=== PATIENT | male | born 1945 | race Caucasian/White ===

== ENCOUNTER → 2016-07-11 | Outpatient (CLI) | payer MEDICARE ==
--- NOTE | 2016-07-11 09:45 | US ---
EXAMINATION TYPE: US prostate transrectal DATE OF EXAM: 07/11/2016 9:05 AM COMPARISON: 02/13/2014 prostate ultrasound. CLINICAL HISTORY: N40.0 hypertrophy of prostate. This examination was performed using the transrectal probe. EXAM MEASUREMENTS: Gland Size: 4.6 x 3.3 x 5.0 cm Volume: 39.4 ml Predicted PSA: 4.7 Actual PSA (if available):1.2 no definitive lesions identified, extensive calcification of left CZ and along urethra Seminal vesicles on initial images are felt within the partially imaged. Prostate gland is slightly m ore prominent on current study and is overall enlarged. No worrisome peripheral zone nodules are seen . Central zone calcifications are redemonstrated. IMPRESSION: Prostate gland remains enlarged in size consistent with BPH, no suspicious focal nodule identified.
== END | disposition home or self-care (01) ==
LOC: RADUSMAIN 08:43
PROVIDERS: ATTEND Family Medicine
DX: N40.0 Benign prostatic hyperplasia without lower urinary tract symptoms (principal)
CPT/HCPCS: 76872

== ENCOUNTER → 2017-11-24 | Outpatient (CLI) | payer MEDICARE ==
[2017-11-24 09:10] LABS: HCT 38.9 % (39.0-53.0); HGB 12.8 gm/dL (13.0-17.5); MCH 30.1 pg (25.0-35.0); MCV 91.4 fL (80.0-100.0); Mean Platelet Volume 7.5; Platelet Count 193 k/uL (150-450); RBC 4.26 m/uL (4.30-5.90); RDW 13.6 % (11.5-15.5); WBC 7.4 k/uL (3.8-10.6)
[2017-11-24 09:18] LABS: Anion Gap 5 mmol/L; Blood Urea Nitrogen 17 mg/dL (9-20); Carbon Dioxide 28 mmol/L (22-30); Chloride 106 mmol/L (98-107); Potassium 4.3 mmol/L (3.5-5.1); Sodium 139 mmol/L (137-145)
== END | disposition home or self-care (01) ==
LOC: LABPAT 08:13
PROVIDERS: ATTEND Internal Medicine Interventional Cardiology
DX: Z01.812 Encounter for preprocedural laboratory examination (principal); I25.10 Atherosclerotic heart disease of native coronary artery without angina pectoris; I48.1 Persistent atrial fibrillation
CPT/HCPCS: 36415; 80051; 82565; 84520; 85027

== ENCOUNTER 2017-12-25 06:32 | Day surgery (SDC) | payer MEDICARE ==
[2017-12-19 12:08] VITALS: BMI 36.1
[~2017-12-25 06:32] MED LIST: ALPRAZolam 0.25 MG TAB PO PRN; ALPRAZolam 0.5 MG TAB PO PRN; ASPIRIN 325 MG TAB PO STA; ATORVASTATIN 80 MG TAB PO STA; NITROGLYCERIN SL TABS 0.4 MG TAB SUBLINGUAL PRN; SODIUM CHLORIDE 0.9% 1,000 ML in EMPTY BAG 1 BAG IV ONE
[2017-12-25 07:09] VITALS: TEMP 98
[2017-12-25 07:21] LABS: Glucose,Whole Blood 123 mg/dL (75-99)
[2017-12-25] MEDS ORDERED: VERAPAMIL 2.5 MG/ML 2 ML AMP ONE (07:36)
[2017-12-25] MEDS ORDERED: MIDAZOLAM 2 MG/2 ML VIAL ONE (07:36)
[2017-12-25] MEDS ORDERED: LIDOCAINE 1% INJ 10MG/ML (20 ML MDV) ONE (07:36)
[2017-12-25 07:44] LABS: INR 1.1 (<1.2); Prothrombin Time 10.5 sec (9.0-12.0)
[2017-12-25] MEDS ORDERED: HEPARIN SODIUM 1,000 UN/ML (10ML VL) ONE (07:50)
[2017-12-25] MEDS ORDERED: MIDAZOLAM 2 MG/2 ML VIAL IV ONE (07:50)
[2017-12-25] MEDS: LIDOCAINE 1% INJ 10MG/ML (20 ML MDV) SQ ONE ×2 (07:52→08:00)
[2017-12-25] MEDS ORDERED: IOPAMIDOL-370 125ML BTL INJ ONE (08:12)
[2017-12-25] MEDS ORDERED: RX INFO: IV CONTRAST WAS GIVEN 1 EACH MISC MISCELLANE PRN (08:18)
[2017-12-25] MEDS ORDERED: SODIUM CHLORIDE 0.9% 1,000 ML IV SCH (08:30)
--- NOTE | 2017-12-25 08:39 | LTR ---
DATE OF SERVICE: 12/25/2017 RE: Indra Go Dear Dr. Correa; Mr. Indra Go was seen in my office for further evaluation of epigastric discomfort. He underwent a stress test and that revealed an anterior ischemia. Subsequently, he underwent today a heart catheterization which revealed critical disease involving the mid LAD with a calcified lesion. The patient will be scheduled to undergo an atherectomy, and stenting of the LAD in the next few weeks. Thank you for allowing us to participate in his care and please do not hesitate to call if you have any question or concern. Sincerely, MD ENRIKE Roberts / BERTHA: [id number] /
--- NOTE | 2017-12-25 08:57 | CC ---
CARDIAC CATHETERIZATION REPORT DATE OF SERVICE: 12/25/2017 PERFORMING PHYSICIAN: Oscar Garcia MD, Family Assistant. PROCEDURE PERFORMED: 1. Selective right and left coronary angiogram. 2. Left heart catheterization. INDICATION: This is a pleasant 72-year-old gentleman with a past medical history significant for diabetes, hypertension, and dyslipidemia, and he is also a former smoker who was experiencing epigastric discomfort. He underwent a myocardial perfusion imaging stress test and that revealed an anterior ischemia. He also did have a CT scan was done by his primary care physician and the CT scan revealed heavily calcified right and left coronary system. Because of that, the patient was scheduled today to undergo a heart catheterization. APPROACH: Right common femoral artery. COMPLICATION: None. LEVEL OF SEDATION: Moderate with sedation length of 23 minutes. PROCEDURE DESCRIPTION: After obtaining an informed consent, the patient was brought to the cardiac labeler. Initially, I tried to access the right radial artery but I was unable and because of that, I accessed the right common femoral artery. I did place a 6-Spanish sheath in the right common femoral artery. After that, I did selective right and left coronary angiogram using JR4 and JL4 catheters. Left heart catheterization was performed using 6-Spanish pigtail catheter. The procedure was completed without any complication. SELECTIVE CORONARY ANGIOGRAM: 1. The right coronary artery is a large caliber vessel and it is a dominant vessel. The RCA is calcified. It bifurcates distally into PDA and PLV branches, both have mild disease only. 2. The left main is calcified with mild disease only. It bifurcates into left circumflex, ramus intermedius, and left anterior descending artery. 3. The left circumflex is a moderate caliber vessel and is a nondominant vessel. The left circumflex itself is normal and gives rise into the first and second OM branches, both appeared to be angiographically normal. 4. The ramus intermedius is a large caliber vessel and seems to be angiographically normal. Distally, it bifurcates into 2 subbranches, both are angiographically normal as well. 5. The LAD, the proximal LAD by the bifurcation of the diagonal branch appeared to have mild disease only. The mid LAD just between the first and second diagonal branches has a calcified eccentric lesion appeared to be in the range of 80% to 90%. The LAD distally appeared to be angiographically normal. The first diagonal branch has mild disease in its ostium and the second diagonal branch appeared to be a moderate caliber vessel and angiographically normal. HEMODYNAMICS: The left ventricular end-diastolic pressure was 8 mmHg and no gradient was identified across the aortic valve. CONCLUSION: 1. Critical disease involving the mid left anterior descending between the bifurcation of first and second diagonal branches. The lesion is calcified and eccentric and critical. POSTPROCEDURE MANAGEMENT: 1. The patient will be scheduled to undergo an atherectomy, balloon angioplasty, and stenting of the LAD in the next couple of weeks. 2. Meanwhile, I will continue the patient on the current medical regimen. He is on aspirin and statin. I will add oral nitrate to the current medical regimen. I will follow up with the patient. MMODL / IJN: [id number] /
[2017-12-25 10:10] VITALS: RESP 18
[2017-12-25 11:40] VITALS: BP 133/80; PULSE 77
== END 2017-12-25 15:20 | disposition home or self-care (01) ==
LOC: CATHCVL 06:32
PROVIDERS: ATTEND Internal Medicine Interventional Cardiology
DX: I25.110 Atherosclerotic heart disease of native coronary artery with unstable angina pectoris (principal); I25.84 Coronary atherosclerosis due to calcified coronary lesion; I10 Essential (primary) hypertension; Z87.891 Personal history of nicotine dependence; F17.290 Nicotine dependence, other tobacco product, uncomplicated; E78.5 Hyperlipidemia, unspecified; I48.1 Persistent atrial fibrillation; E11.9 Type 2 diabetes mellitus without complications; Z79.84 Long term (current) use of oral hypoglycemic drugs; Z79.01 Long term (current) use of anticoagulants; Z79.899 Other long term (current) drug therapy; Z88.8 Allergy status to other drugs, medicaments and biological substances
CPT/HCPCS: 93458; 85610; C1894 ×2; C1769 ×2; J2250; J2001; Q9967

== ENCOUNTER 2018-01-16 06:24 | Day surgery (SDC) | payer MEDICARE ==
[2018-01-09 13:36] VITALS: BMI 36.1
[2018-01-16 06:57] LABS: Basophils # (A) 0.1 k/uL (0-0.2); Basophils % (A) 1 %; Eosinophils # (A) 0.2 k/uL (0-0.7); Eosinophils % (A) 2 %; HCT 39.5 % (39.0-53.0); HGB 13.1 gm/dL (13.0-17.5); Lymphocytes # (A) 1.4 k/uL (1.0-4.8); Lymphocytes % (A) 19 %; MCH 30.8 pg (25.0-35.0); MCHC 33.2 g/dL (31.0-37.0); Mean Platelet Volume 7.3; Monocytes # (A) 0.5 k/uL (0-1.0); Monocytes % (A) 7 %; Neutrophils % (A) 69 %; Platelet Count 207 k/uL (150-450); RBC 4.24 m/uL (4.30-5.90); RDW 13.8 % (11.5-15.5); WBC 7.3 k/uL (3.8-10.6)
[2018-01-16 07:03] LABS: INR 1.1 (<1.2); Prothrombin Time 10.5 sec (9.0-12.0)
[2018-01-16 07:09] LABS: Anion Gap 9 mmol/L; Blood Urea Nitrogen 20 mg/dL (9-20); Calcium 9.1 mg/dL (8.4-10.2); Carbon Dioxide 25 mmol/L (22-30); Chloride 110 mmol/L (98-107); Glucose 110 mg/dL (74-99); Potassium 4.4 mmol/L (3.5-5.1); Sodium 144 mmol/L (137-145)
[2018-01-16 07:11] LABS: Glucose,Whole Blood 111 mg/dL (75-99)
[2018-01-16] MEDS ORDERED: LIDOCAINE 1% INJ 10MG/ML (20 ML MDV) ONE (07:24)
[2018-01-16] MEDS ORDERED: MIDAZOLAM 2 MG/2 ML VIAL ONE (07:24)
[2018-01-16] MEDS ORDERED: LIDOCAINE 1% INJ 10MG/ML (20 ML MDV) SQ ONE (07:52)
[2018-01-16] MEDS ORDERED: MIDAZOLAM 2 MG/2 ML VIAL IVP ONE (07:52)
[2018-01-16] MEDS ORDERED: HEPARIN SODIUM 1,000 UN/ML (10ML VL) ONE (07:52)
[2018-01-16] MEDS ORDERED: HEPARIN SODIUM 1,000 UN/ML (10ML VL) IV ONE (07:54)
[2018-01-16] MEDS ORDERED: fentaNYL (PF) 50 MCG/ML 2 ML AMP ONE (08:13)
[2018-01-16] MEDS: NITROGLYCERIN 1000MCG/10ML SYRINGE INTRACORON ONE ×2 (08:15→08:24)
[2018-01-16] MEDS ORDERED: fentaNYL (PF) 50 MCG/ML 2 ML AMP IVP ONE (08:15)
[2018-01-16] MEDS ORDERED: TICAGRELOR 90 MG TAB ONE (08:24)
[2018-01-16] MEDS ORDERED: TICAGRELOR 90 MG TAB PO ONE (08:24)
[2018-01-16] MEDS ORDERED: NITROGLYCERIN SL TABS 0.4 MG TAB SUBLINGUAL PRN (08:35)
[2018-01-16] MEDS ORDERED: ATROPINE SULFATE 0.1 MG/ML 10ML SYRINGE IV PRN (08:35)
[2018-01-16] MEDS ORDERED: RX INFO: IV CONTRAST WAS GIVEN 1 EACH MISC MISCELLANE PRN (08:35)
[2018-01-16] MEDS ORDERED: ZOLPIDEM 5 MG TAB PO PRN (08:35)
[2018-01-16] MEDS ORDERED: MAG HYDROX/AL HYDROX/SIMETH 30 ML CUP PO PRN (08:35)
[2018-01-16] MEDS ORDERED: IOPAMIDOL-370 125ML BTL INJ ONE (08:37)
[2018-01-16] MEDS ORDERED: SODIUM CHLORIDE 0.9% 1,000 ML IV SCH (08:45)
[2018-01-16] MEDS ORDERED: POTASSIUM GLUCONATE 90 MG PO SCH (09:00)
--- NOTE | 2018-01-16 10:45 | PTCA ---
PERCUTANEOUSTRANS CORORONARY ANGIOGRAPHY DATE OF SERVICE: 01/16/2018 PERFORMING PHYSICIAN: Oscar Garcia MD, [employer] Sales Representative. PROCEDURE PERFORMED: 1. Atherectomy of the mid left anterior descending artery using the orbital atherectomy device from [facility]. 2. Successful stenting of the mid LAD using 2.75 x 18 mm Xience YEN with good angiographic results and reduction of stenosis from 99% to 0%. INDICATION: This is a pleasant 72-year-old gentleman who was experiencing chest discomfort and underwent a heart catheterization a few weeks ago and that showed critical disease involving the mid LAD with heavily calcified lesion. He was brought today to undergo an atherectomy and stenting of the LAD. APPROACH: Right common femoral artery. COMPLICATION: None. LEVEL OF SEDATION: Moderate with sedation length of 40 minutes. PROCEDURE DESCRIPTION: After obtaining an informed consent, the patient was brought to the cardiac laboratory development technician. The right common femoral artery was cannulated using micropuncture technique, the micropuncture wire passed easily then I placed a 6-Spanish sheath in the right common femoral artery. After that, I did start anticoagulation using heparin and was given 10,000 units of heparin IV with continuous ACT monitoring throughout the procedure. After that, I did engage the left main using an XP35 LAD guide. I did wire the left main at the LAD using a whisper wire which was a long whisper wire and then I did exchange my Whisper wire into a ViperWire using a Super Cross catheter. After that, I did atherectomy of the mid LAD using the orbital atherectomy device and I did 3 runs of low speed. After that, I did balloon angioplasty using 2.5 x 12 mm noncompliant balloon which was inflated under 12 atmospheres for 20 seconds before I deployed 2.75 x 8 mm Xience YEN where the stent was positioned under fluoroscopy guidance and deployed under 16 atmospheres for 20 seconds. The following angiogram showed good angiographic results and the procedure was completed without any complication. POSTPROCEDURE MANAGEMENT: 1. Dual anti-platelet therapy. 2. Risk factor modifications and follow up with the patient. MMODL / IJN: [id number] /
[2018-01-16 11:19] LABS: Glucose,Whole Blood 176 mg/dL (75-99)
[2018-01-16] MEDS: ISOSORBIDE MONONITRATE ER 30 MG TAB.ER.24H PO SCH (14:35)
[2018-01-16 17:16] LABS: Glucose,Whole Blood 178 mg/dL (75-99)
[2018-01-16] MEDS: glipiZIDE 10 MG TAB PO SCH (17:25)
[2018-01-16] MEDS ORDERED: WARFARIN 3 MG TAB PO SCH (18:00)
[2018-01-16] MEDS: METOPROLOL TARTRATE 50 MG TAB PO SCH (20:33)
[2018-01-16 20:46] LABS: Glucose,Whole Blood 118 mg/dL (75-99)
[2018-01-16] MEDS ORDERED: ATORVASTATIN 20 MG TAB PO SCH (21:00)
[2018-01-16] MEDS ORDERED: DOXAZOSIN 4 MG TAB PO SCH (21:00)
[2018-01-17 00:55] VITALS: RESP 16
[2018-01-17 06:26] LABS: Glucose,Whole Blood 124 mg/dL (75-99)
[2018-01-17] MEDS: glipiZIDE 10 MG TAB PO SCH (06:47)
[2018-01-17 08:15] LABS: Basophils % (A) 1 %; Eosinophils # (A) 0.1 k/uL (0-0.7); Eosinophils % (A) 1 %; HCT 38.4 % (39.0-53.0); HGB 12.5 gm/dL (13.0-17.5); Lymphocytes # (A) 1.5 k/uL (1.0-4.8); Lymphocytes % (A) 17 %; MCHC 32.4 g/dL (31.0-37.0); MCV 92.4 fL (80.0-100.0); Monocytes # (A) 0.6 k/uL (0-1.0); Monocytes % (A) 6 %; Neutrophils # (A) 6.5 k/uL (1.3-7.7); Neutrophils % (A) 74 %; Platelet Count 190 k/uL (150-450); RBC 4.16 m/uL (4.30-5.90); WBC 8.8 k/uL (3.8-10.6)
[2018-01-17] MEDS: ISOSORBIDE MONONITRATE ER 30 MG TAB.ER.24H PO SCH (08:15)
[2018-01-17] MEDS: METOPROLOL TARTRATE 50 MG TAB PO SCH (08:15)
[2018-01-17 08:24] VITALS: BP 152/74; PULSE 90; TEMP 97.4
[2018-01-17 08:27] LABS: Anion Gap 7 mmol/L; Blood Urea Nitrogen 15 mg/dL (9-20); Calcium 8.7 mg/dL (8.4-10.2); Carbon Dioxide 27 mmol/L (22-30); Chloride 108 mmol/L (98-107); Glucose 107 mg/dL (74-99); Sodium 142 mmol/L (137-145)
[2018-01-17 08:34] LABS: Potassium 4.1 mmol/L (3.5-5.1)
[2018-01-17] MEDS ORDERED: TICAGRELOR 90 MG TAB PO SCH (09:00)
[2018-01-17] MEDS ORDERED: CLOPIDOGREL 75 MG TAB PO STA (10:09)
--- NOTE | 2018-01-17 11:28 | DS ---
DISCHARGE SUMMARY DATE OF ADMISSION: 01/16/2018 DATE OF DISCHARGE: 01/17/2018 BRIEF HISTORY: This is a pleasant 72-year-old gentleman who was admitted to the hospital yesterday and underwent successful atherectomy and balloon angioplasty and stenting of the mid LAD with good angiographic results. The procedure was performed from the right groin which is soft and nontender and without any bruises. The patient is going to be discharged home on dual anti-platelet therapy and I will follow up with the patient in the office next week. ENRIKE / KUNALN: [id number] /
[2018-01-17] MEDS ORDERED: CALCIUM CARBONATE 500 MG CHEWABLE PO SCH (12:00)
[2018-01-17] MEDS ORDERED: WARFARIN 7.5 MG TAB PO SCH (18:00)
[2018-01-18] MEDS ORDERED: CLOPIDOGREL 75 MG TAB PO SCH (09:00)
== END 2018-01-17 10:45 | disposition home or self-care (01) ==
LOC: CATHCVL 06:24 → 6SEL 14:36 → CATHCVL 01-17 10:45
PROVIDERS: ATTEND Internal Medicine Interventional Cardiology
DX: I25.10 Atherosclerotic heart disease of native coronary artery without angina pectoris (principal); I25.84 Coronary atherosclerosis due to calcified coronary lesion; I10 Essential (primary) hypertension; E78.5 Hyperlipidemia, unspecified; E11.9 Type 2 diabetes mellitus without complications; Z87.891 Personal history of nicotine dependence; F17.290 Nicotine dependence, other tobacco product, uncomplicated; I48.2 Chronic atrial fibrillation; Z79.01 Long term (current) use of anticoagulants; Z79.1 Long term (current) use of non-steroidal anti-inflammatories (NSAID); Z79.3 Long term (current) use of hormonal contraceptives; Z79.899 Other long term (current) drug therapy; Z88.8 Allergy status to other drugs, medicaments and biological substances
CPT/HCPCS: 85347; 80048 ×2; 85025 ×2; 85610; C9602; C1760; C1769 ×5; C1887 ×2; C1725; C1894; C1714; C1874; J2250; J2001; J3010; J1644; Q9967